=== PATIENT | female | born 1990 | race African-American/Black ===

== ENCOUNTER 2021-02-18 14:44 | Emergency (ER) | payer MEDICAID ==
[~2021-02-18] VITALS: Ht 160 cm; Wt 55.0 kg
[2021-02-18 15:03] VITALS: BP 117/71
[2021-02-18 17:02] LABS: CLARITY URINE CLEAR (CLEAR); COLOR URINE YELLOW (YELLOW); KETONES URINE NEGATIVE (NEGATIVE); LEUKOCYTE ESTERASE URINE NEGATIVE (NEGATIVE); NITRITE URINE NEGATIVE (NEGATIVE); OCCULT BLOOD URINE NEGATIVE (NEGATIVE); PROTEIN URINE NEGATIVE (NEGATIVE); SPECIFIC GRAVITY URINE 1.018 (1.005-1.030); UROBILINOGEN URINE 0.2 E.U./dL (0.2-1.0)
== END 2021-02-18 17:31 | disposition home or self-care (01) ==
LOC: EDBD → ER 14:44
DX: F41.9 Anxiety disorder, unspecified (principal); F20.9 Schizophrenia, unspecified; E11.9 Type 2 diabetes mellitus without complications; Z87.440 Personal history of urinary (tract) infections
CPT/HCPCS: 81003; 81025; 99283

== ENCOUNTER 2021-02-18 18:25 | Emergency (ER) | payer MEDICAID ==
[~2021-02-18] VITALS: Ht 160 cm; Wt 53.0 kg
[2021-02-18] MEDS ORDERED: IBUPROFEN 400MG TABLET PO ONE (19:30)
[2021-02-18 19:50] LABS: CHLORIDE 104 mEq/L (98-107)
[2021-02-18 19:56] LABS: HCG SCREEN NEGATIVE
[2021-02-18 19:57] LABS: BASOPHILS % 0.9 % (0.0-2.0); EOSINOPHILS % 2.9 % (0.0-5.0); HEMATOCRIT. 40.2 % (36.0-48.0); HEMOGLOBIN. 13.2 g/dL (12.0-16.0); LYMPHOCYTES % 26.8 % (20.0-50.0); MEAN CORPUSCULAR HEMOGLOBIN 28.9 pg (28.0-32.0); MEAN CORPUSCULAR VOLUME 88.3 fL (81.0-99.0); MONOCYTES % 8.6 % (2.0-8.0); NEUTROPHILS % 60.8 % (40.0-76.0); RED BLOOD CELL COUNT 4.55 mill/uL (4.2-5.4); RED CELL DISTRIBUTION WIDTH 13.9 % (11.6-14.6)
[2021-02-18 20:19] LABS: MEAN PLATELET VOLUME 11.9 fl (7.4-10.4); PLATELET 150 x1000/uL (130-400)
[2021-02-19 07:29] LABS: *AMPHETAMINES SCREEN URINE NEGATIVE (NEGATIVE); *BARBITURATES SCREEN URINE NEGATIVE (NEGATIVE); *BENZODIAZEPINES SCREEN URINE NEGATIVE (NEGATIVE); *COCAINE SCREEN URINE NEGATIVE (NEGATIVE)
[2021-02-19 07:30] LABS: CANNABINOID URINE SCREEN NEGATIVE (NEGATIVE); METHADONE URINE SCREEN NEGATIVE (NEGATIVE); OPIATES URINE SCREEN NEGATIVE (NEGATIVE); PHENCYCLIDINE URINE SCREEN NEGATIVE (NEGATIVE)
[2021-02-19 20:00] VITALS: BP 121/77
[2021-02-19] MEDS ORDERED: OLANZAPINE 10MG TABLET PO SCH (21:00)
== END 2021-02-19 21:15 | disposition left against medical advice (07) ==
LOC: EDBD 18:25 → ER 18:25
DX: R10.9 Unspecified abdominal pain (principal); E11.9 Type 2 diabetes mellitus without complications; Z20.822 Contact with and (suspected) exposure to COVID-19; Z59.00 Homelessness unspecified; Z86.59 Personal history of other mental and behavioral disorders
CPT/HCPCS: 36415; 73610; 80053; 81025; 83690; 84703; 85025; 99285; C9803; U0005